=== PATIENT | female | born 1995 | race Caucasian/White ===

== ENCOUNTER → 2023-10-24 13:51 | Outpatient (CLI) | payer OTHER, SELFPAY ==
--- NOTE | 2023-10-24 13:53 | DI.US.S_ITS ---
PROCEDURE: US OB <= 14 WEEKS FETUS INDICATIONS: Official Dating US needed OUTSIDE/PRIOR DATING DATA: Last menstrual period (LMP): August 09, 2023. LMP-based estimated date of delivery (MARJORIE): May 15, 2024. First dating scan (date and location): [facility], October 24, 2023. TECHNIQUE: Real-time scanning was performed of the fetus and maternal pelvic organs, with image documentation. Endovaginal scanning was also performed to better visualize the fetus and maternal ovaries. COMPARISON: None. FINDINGS: Embryo: There is a single live intrauterine gestation with a crown-rump length of 5.1 cm for a gestational age of 11 weeks, 5 days. No perigestational bleeds. Heart rate: 163 Maternal organs: The ovaries have a normal sonographic appearance. IMPRESSION: Single live intrauterine gestation with a gestational age of 11 weeks 5 days by crown-rump length. We strive to produce accurate, complete, and clear reports of imaging services. To assist us in improving patient care, this report was composed using standard report templates and voice recognition software. Therefore, it may contain abnormal punctuation, insertions and/or omissions. Occasional wrong-word or sound-alike substitutions may occur. Though we review the report and make efforts to correct it, we do recommend that the report be read carefully in proper context to recognize any text inaccuracies. Dictated by: Juanis Santamaria M.D. on 10/24/2023 at 16:36 Approved by: Juanis Santamaria M.D. on 10/24/2023 at 16:38
== END ==
LOC: US 13:51
PROVIDERS: PCP Nurse Practitioner Family; Referring Provider Student in an Organized Health Care Education/Training Program; Visit Provider Student in an Organized Health Care Education/Training Program
DX: Z34.01 Encounter for supervision of normal first pregnancy, first trimester (principal); Z3A.11 11 weeks gestation of pregnancy
CPT/HCPCS: 76801

== ENCOUNTER → 2023-12-23 12:15 | Outpatient (CLI) | payer OTHER, SELFPAY ==
--- NOTE | 2023-12-23 12:16 | DI.US.S_ITS ---
PROCEDURE: US OB >= 14 WEEKS FETUS INDICATIONS: anatomy scan, growth OUTSIDE/PRIOR DATING DATA: Last menstrual period (LMP): 08/09/23 LMP-based estimated date of delivery (MARJORIE): 05/15/24. First dating scan (date and location): 11/03/23. Estimated date of delivery (MARJORIE) from first dating scan: Not available. The calculations are made using the clinical MARJORIE of 05/15/24. TECHNIQUE: Real-time scanning was performed of the fetus, with image documentation and biometric measurements. Endovaginal scanning: Not performed COMPARISON: None. FINDINGS: General: A single living intrauterine gestation is present. Presentation: Vertex Placenta: Placental position is anterior , without previa. Amniotic fluid index: 11.2 cm, normal range is 5-24 cm. Single deepest vertical pocket is 4.9 cm. heart rate: 155 beats per minute. Maternal cervical canal: Closed and 4.0 cm long. Normal lower limit is 2.5 cm. biometrics: Biparietal diameter: 4.7 cm, 20 weeks two days Head circumference: 17.2 cm, 19 weeks six days Abdominal circumference: 15.5 cm, 20 weeks three days Femur length: 3.9 cm, 20 weeks two days Clinically estimated gestational age: 19 weeks three days Composite gestational age from present scan: 20 weeks two days Estimated weight and percentile: 347 g, 91st percentile Anatomic survey: Neuro: Ventricles are non-dilated at less than 10 mm. Cisterna magna is normal at 3-11 mm. Cerebellum is normal in size and morphology. Nuchal skin fold: Normal at less than 6 mm between 14-21 weeks gestational age. Face: Nose and lips are normal. Facial profile was not well seen due to lie. Spine: No evidence for spina bifida. Heart: 4-chambered heart is present, with normal ventricular outflow tracts. Diaphragm: Diaphragm is intact. Stomach: Left-sided stomach is present. Kidneys: No hydronephrosis. Normal is less than 5 mm in 2nd trimester, less than 7 mm in 3rd trimester. Cord: 3-vessel cord has orthotopic insertion. Bladder: Normal in size. Extremities: All 4 extremities identified. IMPRESSION: Single living intrauterine with a gestational age six days ahead of the clinically estimated gestational age. Estimated weight at the 91st percentile. Suboptimal visualization of the facial profile due to lie. Consider follow-up. Symmetric growth and otherwise normal anatomy. Anterior placenta. Normal amniotic fluid volume. We strive to produce accurate, complete, and clear reports of imaging services. To assist us in improving patient care, this report was composed using standard report templates and voice recognition software. Therefore, it may contain abnormal punctuation, insertions and/or omissions. Occasional wrong-word or sound-alike substitutions may occur. Though we review the report and make efforts to correct it, we do recommend that the report be read carefully in proper context to recognize any text inaccuracies. Dictated by: Jyothi Herman M.D. on 12/23/2023 at 16:36 Approved by: Jyothi Herman M.D. on 12/23/2023 at 16:43
== END ==
LOC: US 12:15
PROVIDERS: PCP Nurse Practitioner Family; Referring Provider Student in an Organized Health Care Education/Training Program; Visit Provider Student in an Organized Health Care Education/Training Program
DX: Z34.02 Encounter for supervision of normal first pregnancy, second trimester (principal); Z3A.20 20 weeks gestation of pregnancy
CPT/HCPCS: 76811

== ENCOUNTER → 2023-12-30 14:16 | Outpatient (CLI) | payer OTHER, SELFPAY ==
[2023-12-30 15:01] LABS: Appearance Urine UA CLEAR; Bilirubin Urine UA NEGATIVE (NEGATIVE); Color Urine UA YELLOW; Glucose Urine UA NEGATIVE (Negative); Ketones Urine UA NEGATIVE (NEGATIVE); Leukocyte Esterase Urine UA NEGATIVE (NEGATIVE); Nitrite Urine UA NEGATIVE (Negative); Occult Blood Urine UA NEGATIVE (Negative); Protein Urine UA NEGATIVE (Negative); Specific Gravity Urine UA <=1.005 (1.000-1.035); Urobilinogen Urine UA 0.2 E.U./dL (0.2)
[2023-12-30 15:02] LABS: pH Urine UA 6.5 (4.5-8.0)
[2023-12-30 15:04] LABS: Add Manual Diff / Slide Review NO; Basophils Absolute Auto 100 /uL (0-100); Basophils Percent Auto 0.7 % (0-2); Eosinophils Absolute Auto 100 /uL (0-450); Eosinophils Percent Auto 0.7 % (2-4); Hematocrit 34.2 % (36-46); Hemoglobin 11.6 g/dL (12.0-16.0); Lymphocytes Absolute Auto 2000 /uL (1100-4500); Lymphocytes Percent Auto 20.9 % (25-40); Mean Corpuscular HGB Conc 33.8 % (30-36); Mean Corpuscular Hemoglobin 30.4 PG (26-34); Mean Corpuscular Volume 89.9 fL (80-100); Monocytes Absolute Auto 700 /uL (0-900); Monocytes Percent Auto 6.7 % (3-14); Neutrophils Absolute Auto 6900 /uL (1500-7000); Platelet Count 417 X10^3/uL (150-400); Red Blood Cell Count 3.81 X10^6/uL (4.0-5.2); Red Cell Distribution Width 13.8 % (11.6-14.8); White Blood Cell Count 9.8 X10^3/uL (4.5-11.0)
[2023-12-30 15:59] LABS: Hepatitis B Surface Antigen NEGATIVE s/c (NEGATIVE)
[2023-12-30 16:12] LABS: HIV 1 & 2 Ab/Ag 4th Gen Combo NEGATIVE (NEGATIVE); Hep C Virus Ab w/Reflex Quant NEGATIVE s/c (NEGATIVE)
[2024-01-01 07:10] LABS: RPR Screen Non Reactive (Non Reactive)
[2024-01-01 08:39] LABS: Varicella IgG Antibody <135 index (Immune >165)
== END ==
PROVIDERS: PCP Nurse Practitioner Family; Referring Provider Student in an Organized Health Care Education/Training Program; Visit Provider Student in an Organized Health Care Education/Training Program
DX: Z34.00 Encounter for supervision of normal first pregnancy, unspecified trimester (principal)
CPT/HCPCS: 36415; 80055; 81003; 86787; 86803; 86850; 86900; 86901; 87086; 87389

== ENCOUNTER → 2024-01-27 14:48 | Outpatient (CLI) | payer OTHER, SELFPAY ==
[2024-01-27 16:53] LABS: Hematocrit 32.2 % (36-46); Hemoglobin 10.9 g/dL (12.0-16.0)
[2024-01-27 17:45] LABS: GTT (PREG) 1 Hour PP 50gm Dose 99 mg/dL (76-139)
== END ==
LOC: LAB 14:49
PROVIDERS: PCP Nurse Practitioner Family; Referring Provider Student in an Organized Health Care Education/Training Program; Visit Provider Student in an Organized Health Care Education/Training Program
DX: Z34.90 Encounter for supervision of normal pregnancy, unspecified, unspecified trimester (principal); Z3A.24 24 weeks gestation of pregnancy
CPT/HCPCS: 36415; 82950; 85014; 85018

== ENCOUNTER → 2024-04-20 13:59 | Outpatient (CLI) | payer OTHER, SELFPAY ==
[2024-04-21 13:44] LABS: Strep Grp B PCR NEG for Grp B Strep
== END ==
PROVIDERS: PCP Nurse Practitioner Family; Visit Provider Family Medicine
DX: Z34.00 Encounter for supervision of normal first pregnancy, unspecified trimester (principal)
CPT/HCPCS: 87653

== ENCOUNTER 2024-05-02 13:55 | Outpatient (CLI) | payer OTHER, SELFPAY | END 2024-05-02 14:29 | disposition home or self-care (01) | LOC: OB 05-05 08:08 | PROVIDERS: PCP Nurse Practitioner Family; Referring Provider Student in an Organized Health Care Education/Training Program; Visit Provider Student in an Organized Health Care Education/Training Program | DX: O36.8130 Decreased fetal movements, third trimester, not applicable or unspecified (principal); Z3A.38 38 weeks gestation of pregnancy | CPT/HCPCS: 59025; G0378; G0379 ==

== ENCOUNTER 2024-05-11 16:28 | Inpatient (IN) | payer OTHER, SELFPAY ==
[2024-05-11 17:01] VITALS: BP 145/83
[2024-05-11] MEDS: miSOPROStoL 25 MCG TABLET VAG ×2 (17:30→21:31)
[2024-05-11 17:33] LABS: Add Manual Diff / Slide Review NO; Basophils Absolute Auto 0 /uL (0-100); Basophils Percent Auto 0.2 % (0-2); Eosinophils Absolute Auto 0 /uL (0-450); Eosinophils Percent Auto 0.3 % (2-4); Hematocrit 35.6 % (36-46); Hemoglobin 11.5 g/dL (12.0-16.0); Lymphocytes Absolute Auto 1900 /uL (1100-4500); Lymphocytes Percent Auto 15.6 % (25-40); Mean Corpuscular HGB Conc 32.3 % (30-36); Mean Corpuscular Hemoglobin 28.3 PG (26-34); Mean Corpuscular Volume 87.6 fL (80-100); Monocytes Absolute Auto 800 /uL (0-900); Monocytes Percent Auto 6.3 % (3-14); Neutrophils Absolute Auto 9600 /uL (1500-7000); Neutrophils Percent Auto 77.6 % (50-75); Platelet Count 378 X10^3/uL (150-400); Red Blood Cell Count 4.06 X10^6/uL (4.0-5.2); Red Cell Distribution Width 14.1 % (11.6-14.8); White Blood Cell Count 12.4 X10^3/uL (4.5-11.0)
--- NOTE | 2024-05-11 17:38 | P.HPOB_ITS ---
OB HPI Date/Time Date of admission: 05/11/24 Date Patient Seen: 05/11/24 History of Present Condition Chief complaint: INDUCTION MARJORIE Calculator 2 Estimated Delivery Date Method Current WG Current Estimate 05/15/24 LMP (Certain) 39w 3d : 1 Narrative: This is a G1 at 39w3d who desires elective IOL. SVE 50/-3. uncomplicated. care: none Dating criteria OB: LMP confirmed by 1st trimester US Ultrasounds: normal 1st trimester US Obstetrical complications: none Medical complications OB: none Indications Indication for induction OB: maternal discomfort Preadmission Labs Last OB Lab Results: 2 Blood Type O Positive 12/30/23 14:23 Antibody Screen Negative 12/30/23 14:23 Hct 35.6 % (36-46) L 05/11/24 16:50 Hgb 11.5 g/dL (12.0-16.0) L 05/11/24 16:50 Hep Bs Antigen Negative s/c (NEGATIVE) 12/30/23 14:23 Hepatitis C Antibody Negative s/c (NEGATIVE) 12/30/23 14:23 Rubella Antibody 5.0 IU/mL (>15) L 12/30/23 14:23 VZV IgG Antibody <135 index (Immune >165) L 12/30/23 14:23 Glucose 1 Hr 50 gm 99 mg/dL (76-139) 01/27/24 14:58 Group B Strep (PCR) Neg for grp b strep 04/20/24 15:00 Evaluation Evaluation Baseline heart rate: 165 Variability: Average (6-10) monitor accelerations: Present Monitor Decelerations: Absent Uterine Contraction Intensity: Mild Category of Tracing: Reactive Status: Category l Dilation (cm): 1 Effacement (%): 50 Dilation: 1-2 cm Effacement: 40-50% station: -3 Position of cervix: posterior Consistency: medium Barnes score: 3 PFSH Medical History (Updated 10/01/23 @ 14:34 by Maddison Collins RN) Dental crowns present Surgical History (Updated 10/01/23 @ 14:34 by Maddison Collins RN) No pertinent past surgical history Family History (Updated 10/01/23 @ 14:35 by Maddison Collins RN) Grandmother Diabetes mellitus Breast cancer Mother Hypertension Social History marital status: number of children: 0 household members: spouse lives independently: Yes caregiver/support person: No housing: other (trailer) pets and animals: Yes (cat, aware of precautions) education level: college (working on [employer] program) occupational status: student current occupational exposures/hazards: No special radha needs: No travel history: recent (domestic only) seatbelt use: always helmet use: Yes water heater temp set < 120 deg: Yes working smoke detector in home: Yes fire extinguisher in home: Yes carbon monox detector in home: Yes firearms in home: Yes firearms unloaded and locked: Yes do you feel safe at home: Yes Smoking Status: Never smoker second hand exposure: No alcohol intake: former (occasionally when not ) substance use type: does not use during the past year weight has: remained stable well-balanced diet: daily or most days daily servings fruits/ve-4 (usually 2, one each) caffeine: Yes (~100mg/day) Type(s) of exercise: none additional social history: Encouraged pt to apply for WIC if she would benefit from additional budget for nutritious foods. Meds Home Medications and Allergies Home Medications Medication Instructions Recorded Confirmed Type vitamin-ferrous sulfate tab PO 10/01/23 05/11/24 History 27 mg iron-folic acid 0.8 mg tablet Allergies Allergy/AdvReac Type Severity Reaction Status Date / Time No Known Drug Allergies Allergy Verified 05/11/24 13:52 OB Exam Vital signs Blood Pressure: 145/83 Pulse Rate: 80 Narrative Exam Narrative: NAD, breathing easily Objective Labs 05/11/24 16:50 Labs: Laboratory Results - last 24 hr 05/11/24 16:50 WBC 12.4 H RBC 4.06 Hgb 11.5 L Hct 35.6 L MCV 87.6 MCH 28.3 MCHC 32.3 RDW 14.1 Plt Count 378 Neut % (Auto) 77.6 H Lymph % (Auto) 15.6 L [place] % (Auto) 6.3 Eos % (Auto) 0.3 L Baso % (Auto) 0.2 Neut # (Auto) 9600 H Lymph # (Auto) 1900 [place] # (Auto) 800 Eos # (Auto) 0 Baso # (Auto) 0 Assessment and Plan Assessment and Plan Assessment and Plan narrative: 28 yo G1 at 39w3d who requests elective IOL. GBS neg. uncomplicated. Blood type O pos. -olson balloon placed, vag miso 25 mcg placed -expectant management, anticipate Time-Based Coding :: 30 minutes spent with patient and on the chart (including review of chart, obtaining history, exam, reviewing outside data, placing orders, documenting exam and treatment plan, and counseling patient) on 05/11.
[2024-05-11 17:45] VITALS: BP 145/83; PULSE 80
[2024-05-11 17:59] LABS: Alanine Aminotransferase 18 IU/L (<35); Albumin 3.8 g/dL (3.5-5.0); Albumin Globulin Ratio 1.3 (1.0-2.8); Alkaline Phosphatase 210 U/L (38-126); Aspartate Aminotransferase 29 IU/L (14-36); BUN Creatinine Ratio 16.3 (6-22); Bilirubin Total 0.5 mg/dL (0.2-1.3); Blood Urea Nitrogen 7 mg/dL (7-17); Calcium 9.3 mg/dL (8.4-10.2); Carbon Dioxide 20 mmol/L (22-32); Chloride 106 mmol/L (98-107); Estimated Glomerular Filt Rate > 60 mL/min (>60); Glucose 82 mg/dL (70-100); HEMOLYSIS < 15 (0-50); Potassium 3.9 mmol/L (3.4-5.1); Sodium 134 mmol/L (137-145); Total Protein 6.8 g/dL (6.3-8.2)
[2024-05-12] MEDS: miSOPROStoL 25 MCG TABLET VAG (01:31)
[2024-05-12] MEDS: LACTATED RINGERS 1,000 ML 50 ML IV (06:20)
[2024-05-12] MEDS: OXYTOCIN PREMIX 30 UNIT/500 ML PLAST..BAG IV (06:23)
--- NOTE | 2024-05-12 07:17 | PM.OBPNLAB ---
Date/Time Date Patient Seen: 05/12/24 Time Patient Seen: 07:15 Pain Control Pain control: tolerating well Pelvic Exam Dilation (cm): 5 Effacement (%): 80 station: -2 Amniotic membrane status: Ruptured Comments: AROM at this time. Risks/benefits discussed. Contractions Contractions on admission: irregular Monitor mode: External Pitocin rate (mU/min): 2 Contraction pattern: Regular Contraction intensity: Moderate Status status: Category l Heart Rate Baseline: 135 Monitor Accelerations: Present Monitor Decelerations: Absent Monitor Variability: Moderate Assessment and Plan Assessment: active labor Plan: continuous present management Comments: 28 yo G1 at 39w4d here for elective IOL. -s/p olson bulb and misoprostol -now low dose pitocin, AROM with check -anticipate
--- NOTE | 2024-05-12 12:31 | PM.AN.REGBLK ---
Regional Block Pre-procedure Procedure: Continuous Lumbar Epidural for L&D (with dural puncture) Attending OB provider: Tenisha Sanchez PMH/ROS narrative: 28yo G1PO in labor requesting epidural. See pre-anesthesia assessment for further details. ASA Class: II Labs: Hct 35.6 % (36-46) L 05/11/24 16:50 Plt Count 378 X10^3/uL (150-400) 05/11/24 16:50 Medications: Current Medications Generic Name Dose Route Start Last Admin Trade Name Freq PRN Reason Stop Dose Admin Carboprost Tromethamine 250 mcg 05/11/24 16:59 Carboprost 250 Mcg/Ml Ampul IM Q90M PRN Bleeding Diphenhydramine HCl 25 mg 05/12/24 12:28 Diphenhydramine 50 Mg/Ml Vial IV Q10M PRN Pruritis Ephedrine Sulfate 10 mg 05/12/24 12:28 Ephedrine 50 Mg/Ml Vial IV Q5M PRN Blood pressure decrease more than 20% of baseline. Fentanyl 50 mcg 05/11/24 16:59 Fentanyl 100 Mcg/2 Ml Inj IV Q1H PRN Pain, Moderate (4-6) Oxytocin/Lactated Ringer's 30 unit in 500 mls @ 200 mls/hr 05/11/24 16:59 Oxytocin Premix IV CONT PRN Bleeding Protocol Tranexamic Acid 1,000 mg/ 100 mls @ 600 mls/hr 05/11/24 16:59 Sodium Chloride IV NOW PRN Bleeding Oxytocin/Lactated Ringer's 30 unit in 500 mls @ 2 mls/hr 05/12/24 05:37 05/12/24 06:23 Oxytocin Premix IV 2 milliunit/min TITRATE MADI 2 mls/hr Administration Protocol 2 MILLIUNIT/MIN FENT 2MCG/ML BUPIV 0.125% EPI 200 mcg in 100 mls @ 6 mls/hr 05/12/24 12:30 Fentanyl/Bupiv/Ns 2mcg/Ml - 0.125% EPIDURAL CONT MADI Lidocaine HCl 20 ml 05/11/24 16:59 Lidocaine 1% 20 Ml INJ INTRA-OP PRN Post Delivery Methylergonovine Maleate 0.2 mg 05/11/24 16:59 Methylergonovine 0.2 Mg Tablet PO Q6HR PRN Heavy Bleeding Methylergonovine Maleate 0.2 mg 05/11/24 16:59 Methylergonovine 0.2 Mg/Ml Vial IM NOW PRN Bleeding Metoclopramide HCl 10 mg 05/12/24 12:29 Metoclopramide 10 Mg/2 Ml Inj IV 05/13/24 12:29 Q4H PRN Nausea Mineral Oil 30 ml 05/11/24 16:59 Mineral Oil 30 Ml Udc TOP PRN PRN Version Misoprostol 800 mcg 05/11/24 16:59 Misoprostol 200 Mcg Tablet RI NOW PRN Bleeding Misoprostol 400 mcg 05/11/24 16:59 Misoprostol 200 Mcg Tablet SL NOW PRN Bleeding Misoprostol 25 mcg 05/11/24 17:00 05/12/24 01:31 Misoprostol 25 Mcg Tablet VAG 25 mcg Q4H MADI Administration Nalbuphine HCl 2.5 mg 05/12/24 12:28 Nalbuphine 20 Mg/Ml Ampul IV Q10M PRN Pruritis Naloxone HCl 0.2 mg 05/11/24 16:59 Naloxone 0.4 Mg/Ml Vial IV Q2MIN PRN Opiate Reversal Ondansetron HCl 4 mg 05/11/24 16:59 Ondansetron 4 Mg/2 Ml Inj IV Q4HR PRN Nausea And Vomiting Ondansetron HCl 4 mg 05/12/24 12:29 Ondansetron 4 Mg/2 Ml Inj IV 05/13/24 12:29 Q6HR PRN Nausea Oxytocin 10 unit 05/11/24 16:59 Oxytocin 10 Unit/Ml Vial IM NOW PRN Bleeding Allergies: Allergies Allergy/AdvReac Type Severity Reaction Status Date / Time No Known Drug Allergies Allergy Verified 05/11/24 13:52 Procedure Insertion date: 05/12/24 Insertion time: 12:08 Prep/Local: 1% lidocaine (Chloraprep) Interspace: L3-4; required two attempts, redirections Patient position: sitting Needle: 18 gauge Nantead (27g 5 Pencan for dural puncture) Loss of resistance with: saline STEPHEN at (cm): 7 Catheter placed at SKIN (cm): 14 Catheter in SPACE (cm): 7 Insertion: No CSF, No Blood, Yes Paresthesia with insertion, No Paresthesia with injection and No Test dose reaction Initial Medications TEST DOSE time: 12:09 TEST DOSE: 1.5% lidocaine with epinephrine 1:200k (mL): 3 BOLUS DOSE time: 12:10 BOLUS DOSE (mL): 6 BOLUS DOSE med: other (2 ml same as test dose, 4 ml lido PF 2%) Infusion INFUSION: 0.125% bupivacaine and with fentanyl 2 mcg/mL Initial rate (mL/hr): 8 Subsequent interventions: Bleeding at site near skin; none in catheter. Pressure held and pressure dressing applied. Pump started at 12:25. Pt reported pain dropped from 8/10 to 3-4/10 by time of pump start, appears much more comfortable. 17:29 - Pt's RN called to request an epidural bolus for pt. I arrived at the same time as pt's OB, Dr. Sanchez, who wanted to check pt first. Pt was dilated to 10 cm, and she opted not to have the epidural bolus and to begin pushing. Post-procedure Anesthesia date START: 05/12/24 Anesthesia time START: 11:51 Anesthesia date END: 05/12/24 Anesthesia time END: 18:01 Post-procedure Anesthesia Assessment: Yes CV function: HR/BP stable, Yes Resp function: RR/sat/airway adequate, Yes Post-op hydration adequate, Yes Pain control adequate, Yes Nausea & vomiting absent, Yes Temperature > 36 C, Yes Mental status appropriate and No Anesthesia complications
--- NOTE | 2024-05-12 13:04 | PM.OBPNLAB ---
Date/Time Date Patient Seen: 05/12/24 Time Patient Seen: 01:00 Pain Control Pain control: tolerating well and epidural Pelvic Exam Dilation (cm): 6 Effacement (%): 80 station: -1 Amniotic membrane status: Ruptured Contractions Monitor mode: External Pitocin rate (mU/min): 11 Contraction pattern: Regular Contraction intensity: Moderate Status status: Category l Heart Rate Baseline: 145 Monitor Accelerations: Present Monitor Decelerations: Early, Episodic and Late (occasional) Monitor Variability: Moderate Assessment and Plan Assessment: induction ongoing Plan: continuous present management Comments: -s/p epidural -pitocin at 11, continue to titrate up -SVE /-2
[2024-05-12] MEDS: OXYTOCIN PREMIX 30 UNIT/500 ML PLAST..BAG 200 UNIT IV (18:20)
--- NOTE | 2024-05-12 18:28 | PM.OBPRVD ---
Events: Labor Induction Labor & Delivery Delivery date: 05/12/24 Delivery Time: 06:01 Intrapartal Events: None Cervical ripening method: per Lawson bulb protocol (with misoprostol) Induction method: per pitocin protocol Delivery augmentation: rupture of membranes Delivery monitor: external FHT Route of delivery: L&D Laceration Description: Periurethral - 2nd Degree Delivery repair: vicryl Estimated blood loss (mL): 200 Anesthesia Type: Epidural Narrative: Patient is a 28 yo G1 now P1 who electively was induced at 39w3d, with delivery 39w4d. She was found to be complete and pushed for less than 30 minutes. She delivered a vigorous female over an intact perineum. FHTs were category 2 in last 5 minutes for late decels following contractions with heart rates down to the high 80s, low 90s. Patient elected for 15 minutes of delayed cord clamping. Placenta delivered with gentle traction. Pitocin bolus was started following delivery of placent. She had a second degree tear that was repaired with suture. She is recovering well. Plan for aftercare: Routine care
[2024-05-13] MEDS: ACETAMINOPHEN 325 MG TABLET 650 MG PO (03:15)
[2024-05-13] MEDS: IBUPROFEN 600 MG TABLET PO (03:15)
[2024-05-13 07:35] LABS: Add Manual Diff / Slide Review NO; Basophils Absolute Auto 100 /uL (0-100); Basophils Percent Auto 0.7 % (0-2); Eosinophils Absolute Auto 100 /uL (0-450); Eosinophils Percent Auto 0.5 % (2-4); Hematocrit 32.6 % (36-46); Hemoglobin 10.9 g/dL (12.0-16.0); Lymphocytes Absolute Auto 2300 /uL (1100-4500); Lymphocytes Percent Auto 14.3 % (25-40); Mean Corpuscular HGB Conc 33.4 % (30-36); Mean Corpuscular Hemoglobin 28.7 PG (26-34); Mean Corpuscular Volume 85.8 fL (80-100); Monocytes Absolute Auto 1300 /uL (0-900); Monocytes Percent Auto 7.8 % (3-14); Neutrophils Absolute Auto 12600 /uL (1500-7000); Neutrophils Percent Auto 76.7 % (50-75); Platelet Count 340 X10^3/uL (150-400); Red Cell Distribution Width 14.3 % (11.6-14.8); White Blood Cell Count 16.4 X10^3/uL (4.5-11.0)
[2024-05-13 07:43] LABS: Alanine Aminotransferase 21 IU/L (<35); Albumin 2.9 g/dL (3.5-5.0); Albumin Globulin Ratio 1.1 (1.0-2.8); Alkaline Phosphatase 156 U/L (38-126); Aspartate Aminotransferase 32 IU/L (14-36); BUN Creatinine Ratio 16.1 (6-22); Bilirubin Total 0.3 mg/dL (0.2-1.3); Blood Urea Nitrogen 9 mg/dL (7-17); Calcium 8.5 mg/dL (8.4-10.2); Carbon Dioxide 20 mmol/L (22-32); Chloride 107 mmol/L (98-107); Estimated Glomerular Filt Rate > 60 mL/min (>60); Globulin 2.7 g/dL (1.7-4.1); Glucose 88 mg/dL (70-100); HEMOLYSIS < 15 (0-50); Sodium 132 mmol/L (137-145); Total Protein 5.6 g/dL (6.3-8.2)
[2024-05-13 08:16] LABS: Potassium 3.8 mmol/L (3.4-5.1)
--- NOTE | 2024-05-13 11:31 | P.DS_ITS ---
Discharge Providers Provider Date of admission: 05/11/24 16:28 Discharge Date: 05/13/24 Primary care physician: SARITA Veras Consults: 05/11/24 17:00 Consult to Anesthesiology Urgent Comment: Consulting Provider: Anesthesiologist Reason for consultation: Epidural 05/13/24 18:25 Consult to Mutuel Teller Routine Comment: Discharge provider: Nadine Vazquez MD Summary Hospital Course Date Patient Seen: 05/13/24 Time Patient Seen: 11:32 Hospital Course: 28 yo G1 now P1 who was admitted for elective induction at 39w3d, with delivery at 39w4d. She was induced with misoprostol, Lawson balloon and Pitocin. AROM was performed without difficulty. She delivered a vigorous female infant. FHTs were category 2 in last 5 minutes for late decels following contractions with heart rates down to the high 80s, low 90s. Patient elected for 15 minutes of delayed cord clamping. Placenta delivered with gentle traction. Pitocin bolus was started following delivery of placenta. She had a second degree tear that was repaired with suture in the usual fashion. she is doing well. She is without significant difficulty. Pain is controlled with oral medications. She is having bleeding at proximally. Bleeding level with no large clots. She feels ready to go home. BPs very mildly elevated to 130s/80 PP, recommend close f/up with Primary OB for BP check. No pre-E sx at this time, reviewed and recommend return to care if sx arise. LFTs nml, plts nml , cr nml Peripartum Data Infant Delivery Method: Natural Vaginal Laceration Description: Periurethral - 2nd Degree complications: none Status at Discharge Cognitive/behavioral status at discharge: oriented Time Spent with Patient Time attestation: Total time spent providing and/or coordinating discharge services: Time spent: Less than 30 minutes Objective Labs 05/13/24 07:17 05/13/24 07:17 Labs: Laboratory Results - last 24 hr 05/13/24 07:17 WBC 16.4 H RBC 3.80 L Hgb 10.9 L Hct 32.6 L MCV 85.8 MCH 28.7 MCHC 33.4 RDW 14.3 Plt Count 340 Neut % (Auto) 76.7 H Lymph % (Auto) 14.3 L [place] % (Auto) 7.8 Eos % (Auto) 0.5 L Baso % (Auto) 0.7 Neut # (Auto) 54422 H Lymph # (Auto) 2300 [place] # (Auto) 1300 H Eos # (Auto) 100 Baso # (Auto) 100 Sodium 132 L Potassium 3.8 Chloride 107 Carbon Dioxide 20 L BUN 9 Creatinine 0.56 Estimated GFR > 60 BUN/Creatinine Ratio 16.1 Glucose 88 Calcium 8.5 Total Bilirubin 0.3 AST 32 ALT 21 Alkaline Phosphatase 156 H Total Protein 5.6 L Albumin 2.9 L Globulin 2.7 Albumin/Globulin Ratio 1.1 Exam Vital Signs (past 8 hours): BP 134/88 Narrative Exam Narrative: Gen: well appearing, non-toxic Eyes: EOMI pulm: breathing comfortably on RA CV: warma nd well perfused Abd: fundus firm below umbilicus Discharge Plan Discharge Plan Patient Disposition: Home Discharge orders & Medications Prescriptions: Continued vit-ferrous sulfat-FA 27 mg iron- 0.8 mg tablet PO Follow up/Referrals: Florecita Singh, [facility] [Primary Care Provider] - Visit Report/Discharge Packet Stand Alone Forms: Patient Portal/API, Stroke Signs & Symptoms Discharge Data Primary Care Provider: Florecita Singh Attending Provider: Tenisha Sanchez Admit Date/Time: 05/11/24 16:28
[2024-05-13] MEDS: MEASLES,MUMPS,RUBELLA VACC/PF 0.5 ML VIAL SUBCUT (15:29)
== END 2024-05-13 16:32 | disposition home or self-care (01) | DRG 807 ==
PROVIDERS: Admitting Provider Student in an Organized Health Care Education/Training Program; PCP Nurse Practitioner Family; Referring Provider Student in an Organized Health Care Education/Training Program; Visit Provider Student in an Organized Health Care Education/Training Program
DX: O76 Abnormality in fetal heart rate and rhythm complicating labor and delivery (principal); Z37.0 Single live birth; Z3A.39 39 weeks gestation of pregnancy; O70.1 Second degree perineal laceration during delivery
CPT/HCPCS: 36415; 59050; 80053; 85025; 86850; 86900; 86901; G0378; G0379; J2590